=== PATIENT | male | born 1995 | race Caucasian/White ===

== ENCOUNTER 2017-06-19 00:14 | Emergency (ER) | payer SELFPAY ==
[~2017-06-19] VITALS: Ht 185.4 cm; Wt 80.0 kg
[2017-06-19 00:23] VITALS: BP 115/60; PULSE 107; RESP 18; TEMP 98.3; O2SAT 100
--- NOTE | 2017-06-19 00:58 | PD ---
HPI Chief Complaint: Complaint Time Seen by Provider: 00:30 Travel History International Travel<30 days: No Contact w/Intl Traveler<30days: No Traveled to known affect area: No History of Present Illness HPI Patient is a 22-year-old male presenting to the emergency department for evaluation of dysuria. He states that his urine is dark and it chacko when he urinates. He denies any discharge or recent sexual activity. He denies abdominal pain, back pain, fever, chills. Symptom onset was sudden, symptom severity is mild to moderate, there are no alleviating factors. Patient's past medical history significant for bipolar, ADHD, anxiety and depression. PFSH Past Medical History ADHD: Yes Bipolar Disorder: Yes Anxiety: Yes Depression: Yes Past Surgical History Surgical History: No Previous Surgery Social History Alcohol Use: No Tobacco Use: Yes Substance Use: No (DENIES ) Allergies-Medications (Allergen,Severity, Reaction): Coded Allergies: No Known Allergies (Unverified , 06/19/17) Review of Systems Except as stated in HPI: all other systems reviewed are Neg Genitourinary: Positive: Urgency, Frequency, Dysuria Physical Exam Narrative GENERAL: Well-developed, well-nourished, alert male. Presenting in no acute distress. SKIN: Warm and dry. HEAD: Normocephalic. EYES: No scleral icterus. No injection or drainage. NECK: Supple, trachea midline. No JVD or lymphadenopathy. CARDIOVASCULAR: Regular rate and rhythm without murmurs, gallops, or rubs. RESPIRATORY: Breath sounds equal bilaterally. No accessory muscle use. GASTROINTESTINAL: Abdomen soft, non-tender, nondistended. MUSCULOSKELETAL: No cyanosis, or edema. BACK: Nontender without obvious deformity. No CVA tenderness. Data Data Last Documented VS Vital Signs Date Time Temp Pulse Resp B/P (MAP) Pulse Ox O2 Delivery O2 Flow Rate FiO2 06/19/17 00:23 98.3 107 18 115/60 (78) 100 Orders Orders Urinalysis - C+S If Indicated (06/19/17 00:29) Gc And Chlamydia Pcr (06/19/17 00:29) Drug Screen, Random Urine (06/19/17 00:46) Labs Laboratory Tests Test 06/19/17 00:50 Urine Color LIGHT-YELLOW Urine Turbidity CLEAR Urine pH 6.0 Urine Specific [place] 1.004 Urine Protein NEG mg/dL Urine Glucose (UA) NEG mg/dL Urine Ketones NEG mg/dL Urine Occult Blood NEG Urine Nitrite NEG Urine Bilirubin NEG Urine Urobilinogen LESS THAN 2.0 MG/DL Urine Leukocyte Esterase NEG Urine RBC LESS THAN 1 /hpf Urine WBC LESS THAN 1 /hpf Microscopic Urinalysis Comment CULT NOT INDICATED Urine Opiates Screen NEG Urine Barbiturates Screen NEG Urine Amphetamines Screen POS Urine Benzodiazepines Screen NEG Urine Cocaine Screen NEG Urine Cannabinoids Screen NEG MDM Medical Decision Making Medical Screen Exam Complete: Yes Emergency Medical Condition: Yes Interpretation(s) Vital Signs Date Time Temp Pulse Resp B/P (MAP) Pulse Ox O2 Delivery O2 Flow Rate FiO2 06/19/17 00:23 98.3 107 18 115/60 (78) 100 Differential Diagnosis UTI versus STD versus other Narrative Course Patient is a 22-year-old male presenting for evaluation of urinary symptoms. Labs ordered pending. Patient's vital signs are stable. Urinalysis is perfectly normal. Urine drug screen is positive for methamphetamines. GC and Chlamydia are pending. Will defer treatment until cultures result. Patient is encouraged to increase oral fluid intake. He is encouraged to avoid methamphetamine use. Patient stable for discharge. Diagnosis Primary Impression: Substance abuse Additional Impression: Urinary symptom or sign Referrals: [facility] Patient Instructions: General Instructions Additional Instructions: Return to emergency department for any new or worsening symptoms Increase oral fluid intake Avoid use of methamphetamines Follow-up with [facility]/Other Pt SpecificInfo: No Change to Meds Disposition: 01 DISCHARGE HOME Condition: Stable Vee Everett Jun 19, 2017 00:58
[2017-06-19 02:24] LABS: BILIRUBIN, URINE NEG (NEG); BLOOD, URINE NEG (NEG); GLUCOSE,URINE NEG (NEG); KETONE, URINE NEG (NEG); NITRITE,URINE NEG (NEG); URINE COLOR LIGHT-YELLOW (YELLW/STRAW); URINE LEUKOCYTE ESTERASE NEG (NEG)
== END 2017-06-19 02:56 | disposition home or self-care (01) ==
LOC: NEPD 00:14
DX: F19.10 Other psychoactive substance abuse, uncomplicated (principal); R39.15 Urgency of urination; Z72.0 Tobacco use
CPT/HCPCS: 80307; 81001; 87491; 87591; 99283

== ENCOUNTER 2017-06-28 08:51 | Observation (INO) | payer SELFPAY ==
[~2017-06-28] VITALS: Ht 185.4 cm; Wt 87.1 kg
[2017-06-28 09:03] VITALS: BP 118/74; PULSE 98; RESP 16; TEMP 97.6; O2SAT 98
[2017-06-28] MEDS ORDERED: SODIUM CHLOR 0.9% 1000 ML INJ 1,000 ML IV ONE (09:45)
[2017-06-28] MEDS ORDERED: CLON0.2T PO (09:51)
[2017-06-28] MEDS ORDERED: FLUO40CA PO (09:51)
[2017-06-28] MEDS ORDERED: TRAZ300T2 PO (09:51)
--- NOTE | 2017-06-28 10:11 | RADRPT ---
EXAM DATE/TIME: 06/28/2017 09:42 [facility] COMPARISON: No previous studies available for comparison. INDICATIONS : Foreign body in rectum. MEDICAL HISTORY : None. SURGICAL HISTORY : None. ENCOUNTER: Initial ACUITY: 1 day PAIN SCORE: 0/10 LOCATION: abdomen FINDINGS: There is evidence of a mechanical foreign body within the rectosigmoid colon. No bowel obstruction or ileus. No free air is noted to suggest perforation. Mild scoliosis of the lumbar spine is noted CONCLUSION: 1. Mechanical foreign body within the rectosigmoid colon. 2. No evidence of bowel obstruction, ileus or perforation. 3. Mild scoliosis of the lumbar spine. Juan Miguel Witt MD on June 28, 2017 at 10:03 Board Certified Radiologist. This report was verified electronically.
[2017-06-28 10:33] VITALS: BP 129/45; PULSE 71; RESP 16; O2SAT 97
[2017-06-28 10:34] LABS: CALCIUM 8.6 MG/DL (8.5-10.1)
[2017-06-28 10:35] LABS: BICARBONATE 28.7 MEQ/L (21.0-32.0)
[2017-06-28 10:38] LABS: AUTOMATED NEUTROPHIL # 5.2 TH/MM3 (1.8-7.7); BASOPHIL # 0.3 TH/MM3 (0-0.2); BASOPHIL % 4.1 % (0.0-2.0); CREATININE 0.77 MG/DL (0.60-1.30); EOSINOPHIL % 0.5 % (0.0-4.0); HEMATOCRIT 45.2 % (39.0-51.0); LYMPH % 26.6 % (9.0-44.0); LYMPHOCYTE # 2.2 TH/MM3 (1.0-4.8); MEAN CELL VOLUME 82.5 FL (80.0-100.0); MEAN CORPUSCULAR HEMOGLOBIN 27.3 PG (27.0-34.0); MEAN CORPUSCULAR HGB CONC 33.1 % (32.0-36.0); MEAN PLATELET VOLUME 8.3 FL (7.0-11.0); MONO % 7.2 % (0.0-8.0); MONOCYTE # 0.6 TH/MM3 (0-0.9); NEUT % 61.6 % (16.0-70.0); PLATELET COUNT 336 TH/MM3 (150-450); RED BLOOD COUNT 5.48 MIL/MM3 (4.50-5.90); RED CELL DISTRIBUTION WIDTH 15.9 % (11.6-17.2); WHITE BLOOD COUNT 8.3 TH/MM3 (4.0-11.0)
--- NOTE | 2017-06-28 10:40 | PD ---
HPI Chief Complaint: Foreign Body Time Seen by Provider: 09:38 Travel History International Travel<30 days: No Contact w/Intl Traveler<30days: No Traveled to known affect area: No History of Present Illness HPI This 22-year-old male says that he inserted an anal Toy in his rectum about 6 hours ago. He is on been unable to retrieve it. This happened to him about 4 months ago when he had to have anesthesia to move it. He tried to remove it himself and had some blood per rectum was unable to remove the object. He says it is about 6 inches long and does not have any sharp edges. He is not having abdominal pain. PFSH Past Medical History ADHD: Yes Bipolar Disorder: Yes Anxiety: Yes Depression: Yes Influenza Vaccination: No Social History Alcohol Use: Yes Tobacco Use: Yes Substance Use: No (DENIES ) Allergies-Medications (Allergen,Severity, Reaction): Coded Allergies: No Known Allergies (Unverified , 06/28/17) Reported Meds & Prescriptions Reported Meds & Active Scripts Active Reported Trazodone (Trazodone HCl) 300 Mg Tab 300 Mg PO HS Clonidine (Clonidine HCl) 0.2 Mg Tab 0.4 Mg PO DAILY Fluoxetine (Fluoxetine HCl) 40 Mg Cap 40 Cap PO DAILY Review of Systems General / Constitutional: No: Fever, Chills Eyes: No: Diploplia, Blurred Vision HENT: No: Headaches, Vertigo Cardiovascular: No: Chest Pain or Discomfort, Palpitations Respiratory: No: Cough, Wheezing Gastrointestinal: No: Abdominal Pain Genitourinary: No: Urgency, Decreased Urinary Output Musculoskeletal: No: Myalgias Skin: No Rash Neurologic: No: Weakness Physical Exam Narrative GENERAL: Well-developed male SKIN: Focused skin assessment warm/dry. HEAD: Atraumatic. Normocephalic. EYES: Pupils equal and round. No scleral icterus. No injection or drainage. ENT: No nasal bleeding or discharge. Mucous membranes pink and moist. NECK: Trachea midline. No JVD. CARDIOVASCULAR: Regular rate and rhythm. No murmur appreciated. RESPIRATORY: No accessory muscle use. Clear to auscultation. Breath sounds equal bilaterally. GASTROINTESTINAL: Abdomen soft, non-tender, nondistended. Hepatic and splenic margins not palpable. Rectal exam I can feel the foreign object at the tip of my finger but I am not able to grasp it there is no obvious blood MUSCULOSKELETAL: No obvious deformities. No clubbing. No cyanosis. No edema. NEUROLOGICAL: Awake and alert. No obvious cranial nerve deficits. Motor grossly within normal limits. Normal speech. PSYCHIATRIC: Appropriate mood and affect; insight and judgment normal. Data Data Last Documented VS Vital Signs Date Time Temp Pulse Resp B/P (MAP) Pulse Ox O2 Delivery O2 Flow Rate FiO2 06/28/17 10:33 71 16 129/45 (73) 97 Room Air 06/28/17 09:03 97.6 Orders Orders Abdomen, Flat & Upright (06/28/17 09:38) Complete Blood Count With Diff (06/28/17 09:39) Basic Metabolic Panel (Bmp) (06/28/17 09:39) Sodium Chlor 0.9% 1000 Ml Inj (Ns 1000 M (06/28/17 09:45) Labs Laboratory Tests Test 06/28/17 10:15 Blood Urea Nitrogen 7 MG/DL Random Glucose 63 MG/DL Calcium Level 8.6 MG/DL Sodium Level 142 MEQ/L Potassium Level 3.4 MEQ/L Chloride Level 106 MEQ/L Carbon Dioxide Level 28.7 MEQ/L Anion Gap 7 MEQ/L MDM Medical Decision Making Medical Screen Exam Complete: Yes Emergency Medical Condition: Yes Medical Record Reviewed: Yes Differential Diagnosis Differential includes rectal foreign body Narrative Course Plain films confirm the presence of a foreign body. There is no evidence of perforation. I have not been able to remove the foreign body digitally. I have spoken with Dr. Lovell and the patient will be transferred to the main campus Diagnosis Primary Impression: Foreign body of rectum Admitting Information Admitting Physician Requests: Observation Nimseh Styles MD Jun 28, 2017 10:40
[2017-06-28 11:27] VITALS: BP 119/45; PULSE 93; RESP 16; O2SAT 97
[2017-06-28 16:18] VITALS: BP 122/54; PULSE 89; RESP 18; O2SAT 99
[2017-06-28 20:45] VITALS: TEMP 97.5
[2017-06-28] MEDS ORDERED: DO NOT ADM ANY ANTICOAGULANT DRUGS PRN (20:45)
--- NOTE | 2017-06-28 21:06 | MR ---
cc: Master Lovell MD DATE: 06/28/2017 POSTOPERATIVE DIAGNOSIS: Foreign body of the rectum. PROCEDURE: Flexible sigmoidoscopy and extraction of foreign body of the rectum. POSTOPERATIVE DIAGNOSIS: Foreign body of the rectum. SURGEON: Master Lovell MD DESCRIPTION OF PROCEDURE: The patient was placed in left lateral decubitus position. After adequate anesthesia sedation rectal exam confirmed palpable foreign body at the tip of the finger. Olympus colonoscope was introduced into the rectum and advanced to the sigmoid where the foreign body was easily visible. A snare was placed around the distal end of the object and with insufflation the object was pulled back into the rectum. At this point, with traction on the snare and bimanual palpation, the object was extracted through the anal canal atraumatically. Sigmoidoscope was then inserted and the rectosigmoid examined showing some edema of the mucosa, but no sign of any tearing or mucosal lacerations. No bleeding was seen. The proximal bowel appeared to be relatively normal. Internal hemorrhoids were irritated slightly, but no ulceration or thrombosis and no bleeding was seen. The patient tolerated the procedure quite well and was brought to the recovery room in stable condition. Master Lovell MD A[facility]/rt , 08:43 PM , 09:05 PM
[2017-06-28 21:15] VITALS: BP 138/83; PULSE 94; RESP 22; O2SAT 100
--- NOTE | 2017-06-29 08:42 | MB ---
cc: Master Lovell MD DATE: 06/28/2017 REASON FOR CONSULTATION: Foreign body in the rectum. HISTORY OF PRESENT ILLNESS: Mr. Zendejas is a 22-year-old male who presented to the ER today after inserting to a in his rectum, about 6 hours prior to ER visit. He has been trying to strain and pass the object on his own, but has been unable to. Patient admitted to having this happen about 4 months ago and required anesthesia for sedation to retrieve the object. The patient noted some blood when he wiped himself, but denies any abdominal pain, no nausea, vomiting or abdominal distention. Denies any fever. He has not eaten anything except some liquids since before coming to the emergency room. Please see the ER report for more complete past medical and surgical history. PERTINENT PHYSICAL EXAMINATION: GENERAL: A very pleasant, anxious male in no acute distress. HEENT: Remarkable for pink, dry membranes. Nonicteric sclerae. NECK: Supple without gross adenopathy. LUNGS: Relatively clear, symmetrical expanding. CARDIOVASCULAR: Heart had a regular rhythm. ABDOMEN: Very soft and benign. Good muscle tone. No rebound, guarding, no masses. ANAL: Inspection reveals benign external canal with very tight anal sphincter. Digital exam reveals no mucosal irregularity. No blood on the finger, but a foreign body at the tip of the finger, but with straining and forceful abdominal pressure was unable to get it down into the rectum for easy removal. EXTREMITIES: No cyanosis or clubbing and no pedal edema. IMPRESSION: Foreign body of the rectum. PLAN: After reviewing with the patient, he does not want to try any more straining and transanal removal on the stretcher in the Emergency Room. We will arrange for GI lab to come in with the colonoscope and with some IV sedation a try to snare the object and retrieve it under MAC anesthesia. Risks, benefits, alternatives were discussed at great length with the patient and we will try to set up as soon as possible, when the equipment is available. Master Lovell MD [facility] [place]/ , 08:00 PM , 08:35 PM
== END 2017-06-28 22:50 | disposition home or self-care (01) ==
LOC: PHED 08:51 → UNDOADMOB 10:59 → PHEDA 10:59 → UNDODISOB 22:50
PROVIDERS: ADMIT Hospitalist; ATTEND Hospitalist
DX: T18.5XXA Foreign body in anus and rectum, initial encounter (principal); F31.9 Bipolar disorder, unspecified; F90.9 Attention-deficit hyperactivity disorder, unspecified type; F41.9 Anxiety disorder, unspecified; F17.200 Nicotine dependence, unspecified, uncomplicated
CPT/HCPCS: 00811; 45332; 74019; 80048; 85025; 96360; 99285; G0378; J7030